=== PATIENT | female | born 1965 ===

== ENCOUNTER → 2018-01-25 22:50 | Outpatient (REF) | payer OTHER, SELFPAY ==
[2018-01-25 23:35] LABS: Add Manual Diff / Slide Review NO; Basophils Percent Auto 0.5 % (0-2); Eosinophils Percent Auto 2.7 % (2-4); Hematocrit 41.1 % (36-46); Hemoglobin 13.5 g/dL (12.0-16.0); Lymphocytes Percent Auto 32.2 % (25-40); Mean Corpuscular HGB Conc 32.9 % (30-36); Mean Corpuscular Hemoglobin 29.4 PG (26-34); Mean Corpuscular Volume 89.3 fL (80-100); Neutrophils Absolute Auto 5700 /uL (1500-7000); Neutrophils Percent Auto 59.6 % (50-75); Platelet Count 305 X10^3/uL (150-400); White Blood Cell Count 9.6 X10^3/uL (4.5-11.0)
[2018-01-26 01:49] LABS: Alanine Aminotransferase 130 IU/L (9-52); Albumin 4.3 g/dL (3.5-5.0); Albumin Globulin Ratio 1.4 (1.0-2.8); Alkaline Phosphatase 101 U/L (38-126); Aspartate Aminotransferase 89 IU/L (14-36); Bilirubin Total 0.5 mg/dL (0.2-1.3); Blood Urea Nitrogen 15 mg/dL (7-17); Calcium 9.6 mg/dL (8.4-10.2); Carbon Dioxide 26 mmol/L (22-32); Chloride 102 mmol/L (98-107); Estimated Glomerular Filt Rate > 60.0 mL/min (>60); Globulin 3.1 g/dL (1.7-4.1); Glucose 107 mg/dL (70-100); HEMOLYSIS < 15 (0-50); Potassium 4.4 mmol/L (3.4-5.1); Sodium 143 mmol/L (137-145); Total Protein 7.4 g/dL (6.3-8.2)
[2018-01-26 02:09] LABS: Free T4, Direct Thyroxine 1.11 ng/dL (0.78-2.19)
[2018-01-26 02:23] LABS: Thyroid Stimulating Hormone 1.55 uIU/mL (0.47-4.68)
[2018-01-26 02:29] LABS: Ferritin 57.2 ng/mL (11.1-264)
[2018-01-27 15:32] LABS: Progesterone 0.9 ng/mL
[2018-01-29 14:29] LABS: Testosterone Free 3.9 pg/mL (0.1-6.4); Testosterone Total 20 ng/dL (2-45)
[2018-01-29 21:13] LABS: Estrogen 270.5 pg/mL
== END ==
LOC: LAB 22:50
PROVIDERS: Visit Provider Physician Assistant
DX: E61.1 Iron deficiency (principal); E03.9 Hypothyroidism, unspecified; N95.1 Menopausal and female climacteric states; R63.5 Abnormal weight gain; R68.82 Decreased libido; R53.83 Other fatigue
CPT/HCPCS: 36415; 80053; 82672; 82728; 83001; 83002; 84144; 84402; 84403; 84439; 84443; 85025